=== PATIENT | female | born 1995 | race Caucasian/White ===

== ENCOUNTER 2018-09-21 15:18 | Outpatient (CLI) | payer OTHER | END 2018-09-22 10:33 | disposition home or self-care (01) | LOC: OBS/DEL 15:18 | DX: O60.03 Preterm labor without delivery, third trimester (principal); Z34.03 Encounter for supervision of normal first pregnancy, third trimester ==

== ENCOUNTER 2018-10-10 07:53 | Inpatient (IN) | payer OTHER ==
[~2018-10-10] VITALS: Ht 162.6 cm; Wt 89.8 kg
[2018-10-10] MEDS ORDERED: PRENATAL TABLE1 EAC2 PO (09:21)
== END 2018-10-13 10:34 | disposition home or self-care (01) | DRG 807 ==
LOC: LDR 07:53 → OB/GYN 07:53
PROVIDERS: ADMIT Obstetrics & Gynecology
PROC: 4A1HXCZ Monitoring of Products of Conception, Cardiac Rate, External Approach (ICD-10-PCS; 2018-10-10)
PROC: 10E0XZZ Delivery of Products of Conception, External Approach (ICD-10-PCS; principal; 2018-10-11)
PROC: 3E033VJ Introduction of Other Hormone into Peripheral Vein, Percutaneous Approach (ICD-10-PCS; 2018-10-11)
PROC: 4A033R1 Measurement of Arterial Saturation, Peripheral, Percutaneous Approach (ICD-10-PCS; 2018-10-11)
DX: O41.03X0 Oligohydramnios, third trimester, not applicable or unspecified (principal); Z37.0 Single live birth; Z3A.39 39 weeks gestation of pregnancy